=== PATIENT | female | born 1965 | race Caucasian/White ===

== ENCOUNTER 2019-12-09 09:41 | Emergency (ER) | payer OTHER, SELFPAY ==
--- NOTE | ~2019-12-09 | CT_ITS ---
EXAMINATION: CT brain wo con DATE: 12/09/2019 11:02 INDICATION: Head injury. TECHNIQUE: Computed tomography (CT) of the head was performed without intravenous contrast. The mA wa s adjusted according to patient size. Iterative reconstruction technique was employed. The dose-lengt h product was 605.33 mGy-cm. COMPARISON: None FINDINGS: There are scattered areas of low attenuation in the cerebral white matter. There is no intr acranial hemorrhage, acute infarction, or abnormal intracranial mass lesion. The ventricles are junior l in size. The orbits are normal. The paranasal sinuses are clear. The mastoid air cells are normal. There is left periorbital soft tissue swelling. IMPRESSION: 1. Mild nonspecific cerebral white matter disease, which likely represents chronic small vessel ische tay disease. Reviewed, dictated and finalized at location A. ERN FITTER IMPRESSION: 1. Mild nonspecific cerebral white matter disease, which likely represents rod drawer lauren small vessel ischemic disease.
--- NOTE | ~2019-12-09 | CT_ITS ---
EXAMINATION: CT facial bones wo con DATE: 12/09/2019 11:02 INDICATION: Left face injury. TECHNIQUE: Computed tomography (CT) of the facial bones and maxillofacial region was performed withou t intravenous contrast. Automated exposure control and iterative reconstruction technique were employ ed. The dose-length product was 474.14 mGy-cm. COMPARISON: None. FINDINGS: Left periorbital soft tissue swelling is noted. The orbits are normal. Bone alignment is no rmal. No fracture. The paranasal sinuses are clear. There are periapical lucencies around tooth #21. There is a carious lesion of tooth #12. IMPRESSION: 1. No fracture. 2. Dental disease. Reviewed, dictated and finalized at location A. NCE PROFESSOR
[2019-12-09 09:50] VITALS: BP 168/100; PULSE 84; RESP 18; TEMP 36.9; O2SAT 100
--- NOTE | 2019-12-09 10:08 | ED.FALL ---
HPI - Fall General Chief Complaint: Fall Stated Complaint: Fall Monday, Eye swelling Time Seen by Provider: 12/09/19 10:02 Source: patient and RN notes reviewed Mode of arrival: ambulatory Limitations: no limitations History of Present Illness HPI Narrative: 3A 54 y/o female presents to the ED with worsening facial swelling after having a ground level fall 3 days ago. She states that she was getting ready to walk up a driveway when she tripped over the curb and fell face forward. She reports lt periorbital pain, back pain, MARY knee pain, and chest wall pain. She notes that the swelling has moved from her lt periorbital area to her rt periorbital area. She also notes that she has taken Ibuprofen and Vicodon but denies it alleviating her symptoms. She also denies any LOC, weakness, dizziness, visual changes, nasal discharge, ear discharge, or SOB. MD complaint: fall Onset (ago): day(s) (3) Fall from: standing Place fall occurred: street Loss of consciousness: none Symptoms prior to fall: none Context: tripped/slipped Location of injury: face (MARY periorbital swelling and lt periorbital pain) Associated symptoms (after fall): other (MARY knee pain, back pain, and chest wall pain) Related Data Home Medications Medication Instructions Recorded Confirmed levetiracetam 12/09/19 lisinopril 12/09/19 Allergies Allergy/AdvReac Type Severity Reaction Status Date / Time metoclopramide [From Reglan] Allergy Unknown Verified 12/09/19 09:53 morphine Allergy Unknown Verified 12/09/19 09:53 povidone-iodine Allergy Unknown Verified 12/09/19 09:53 [From Betadine] prochlorperazine Allergy Unknown Verified 12/09/19 09:53 [From Compazine] promethazine [From Phenergan] Allergy Unknown Verified 12/09/19 09:53 soap [From Betadine] Allergy Unknown Verified 12/09/19 09:53 Review of Systems Review of Systems: All systems reviewed & are unremarkable except as noted in HPI and below Eyes: Eyes: Denies change in vision and Reports other (MARY periorbital swelling and lt periorbital pain) ENT: Denies ear discharge and Denies nasal discharge Cardiovascular: Cardiovascular: Reports other (chest wall pain) Respiratory: Respiratory: Denies dyspnea Musculoskeletal: Musculoskeletal: Reports back pain and Reports other (MARY knee pain) Neurologic: Denies dizziness, Denies weakness and Denies other (LOC) PMFSH Past Medical History Medical History H/O: HTN (hypertension) Hx of seizure disorder Surgical History Surgical History Surgical history unknown Family History Family History Mother Family history of malignant neoplasm of breast in first degree relative Other Carcinoma of colon Social History Social History Smoking status: Never smoker Alcohol intake: current Gender identity (if verbalized by the patient): Female Exam Const: General: healthy appearing and no acute distress Nutritional Appearance: well nourished HENMT: Head: abrasion (forehead) and other (swelling to MARY periorbital area appears to be more seruous fluid) Mouth: Yes lip normal and Yes moist mucous membranes Eyes: Conjunctivae: conjunctivae normal Pupils: Equal, round and reactive pupils present Resp: Effort & Inspection: normal respiratory effort Auscultation: clear to auscultation bilaterally Cardio: Rate: regular rate Rhythm: regular rhythm Heart sounds: no murmurs GI: Inspection: non-distended GI Palp: No abdominal tenderness Auscultation: normal bowel sounds Back/Spine/Pelvis: Other: Full ROM. Skin: General skin exam: normal color, dry skin and other (warm) Neuro: General: patient oriented x3 (alert) Speech: normal speech Extrem: General: full ROM Psych: Mental Status: mental status grossly normal Affect: normal affect Course Vital Signs
[2019-12-09 11:04] VITALS: BP 143/88; PULSE 83; RESP 18; TEMP 36.5; O2SAT 100
== END 2019-12-09 13:06 | disposition home or self-care (01) ==
PROVIDERS: Emergency Provider Emergency Medicine
DX: S00.83XA Contusion of other part of head, initial encounter (principal); K04.7 Periapical abscess without sinus; I10 Essential (primary) hypertension; W10.1XXA Fall (on)(from) sidewalk curb, initial encounter; R90.82 White matter disease, unspecified
CPT/HCPCS: 41800; 70450; 70486; 99284

== ENCOUNTER 2024-08-26 15:09 | Emergency (ER) | payer OTHER, SELFPAY ==
--- NOTE | ~2024-08-26 | US_ITS ---
EXAMINATION: US breast RT limited DATE: 08/26/2024 17:38 JUNIOR ASSISTANT MANAGER INDICATION: Palpable abnormality TECHNIQUE: Survey imaging of the right breast was performed assessing grayscale appearance and color Doppler flow. FINDINGS: At the 10:00 position of the right breast within the area of palpable concern, no discrete fluid carlos ection is identified to suggest an abscess. IMPRESSION: Within the area of palpable concern no discrete fluid collection is appreciated. Follow-up with dedicated mammogram and ultrasound of the area of clinical concern is recommended for complete evaluation. BI-RADS Category 0: Incomplete, additional imaging is needed. Reviewed, dictated and finalized at location A. OR ASSISTANT MANAGER IMPRESSION: Within the area of palpable concern no discrete fluid collection is appreciated . Follow-up with dedicated mammogram and ultrasound of the area of clinical isabel rn is recommended for complete evaluation. BI-RADS Category 0: Incomplete, additional imaging is needed.
[2024-08-26 15:11] VITALS: BP 130/82; PULSE 80; RESP 16; TEMP 36.4; O2SAT 98
--- NOTE | 2024-08-26 16:41 | ED_ITS ---
HPI - General Adult General Chief complaint: Recheck/Abnormal Lab/Rx <RONALD Darden Last Filed: 08/26/24 16:47> Stated complaint: right breast lump <RONALD Darden Last Filed: 08/26/24 16:47> Time Seen by Provider: 08/26/24 16:42 <RONALD Darden Last Filed: 08/26/24 16:47> Focused HPI: Patient is a 59-year-old female who presents the ED with report of right breast lump. Patient reports she noticed a lump while taking a shower this morning in the 10:00 oclock region of her right breast from her nipple. She became very concerned. Does not currently have a PCP. reports breast cancer runs in her family in her mother and her maternal aunt. Patient last had a mammogram 1.5 years ago which he states was normal at that time. Denies fevers, skin changes, nipple discharge. GENERAL: Well-appearing, well-nourished, and in no acute distress. HEAD: Normocephalic, atraumatic. CHEST: Clear to auscultation. ?No respiratory distress. HEART: Regular rate and rhythm.? BREAST: Moderate sized palpable area of induration/mass to R breast in 10[place]ock region from nipple. No nipple inversion or drainage. NEURO: ?Alert and oriented x3. Patient screened in triage and initial orders placed.? ?Additional care and disposition to be based upon?diagnostic testing and treatment. <Kourtney Zaragoza PA-C - Last Filed: 08/26/24 16:47> Source: patient <RONALD Darden Last Filed: 08/26/24 16:47> Mode of arrival: ambulatory <RONALD Darden Last Filed: 08/26/24 16:47> Limitations: no limitations <RONALD Darden Last Filed: 08/26/24 16:47> History of Present Illness HPI narrative: Agree with the above HPI. <RONALD Russell Last Filed: 08/26/24 18:58> Related Data Home medications: Home Medications Medication Instructions Recorded Confirmed levetiracetam 12/09/19 lisinopril 20 mg tablet 12/09/19 <Kourtney Zaragoza PA-C - Last Filed: 08/26/24 16:47> Allergies/adverse reactions: Allergies Allergy/AdvReac Type Severity Reaction Status Date / Time metoclopramide [From Reglan] Allergy Unknown Verified 08/26/24 15:17 morphine Allergy Unknown Verified 08/26/24 15:17 povidone-iodine Allergy Unknown Verified 08/26/24 15:17 [From Betadine] prochlorperazine Allergy Unknown Verified 08/26/24 15:17 [From Compazine] promethazine [From Phenergan] Allergy Unknown Verified 08/26/24 15:17 soap [From Betadine] Allergy Unknown Verified 08/26/24 15:17 <Kourtney Zaragoza PA-C - Last Filed: 08/26/24 16:47> Review of Systems Review of Systems: All systems reviewed & are unremarkable except as noted in HPI and below <Shelly Freire PA-C - Last Filed: 08/26/24 18:58> PMFSH Past Medical History Medical History: Medical History (Updated 08/26/24 @ 18:55 by Shelly Freire PA-C) H/O: HTN (hypertension) Hx of seizure disorder <Kourtney Zaragoza PA-C - Last Filed: 08/26/24 16:47> Surgical History Surgical History: Surgical History Surgical history unknown <Kourtney Zaragoza PA-C - Last Filed: 08/26/24 16:47> Family History Family History: Family History Mother Family history of malignant neoplasm of breast in first degree relative Other Carcinoma of colon <Kourtney Zaragoza PA-C - Last Filed: 08/26/24 16:47> Social History Social History: Social History Smoking status: Never smoker Alcohol intake: current Gender identity (if verbalized by the patient): Female <RONALD Darden Last Filed: 08/26/24 16:47> Exam Narrative: GENERAL: Well-appearing, well-nourished, and in no acute distress. HEAD: Normocephalic, atraumatic. EYES: EOMI. ENT: Nares clear, no rhinorrhea or epistaxis. Mucous membranes moist. NECK: Supple. CHEST: Clear to auscultation. No respiratory distress. Moderate size area of firm mass to the right upper outer quadrant of the breast. No overlying skin changes. No nipple discharge. No fluctuance HEART: Regular rate and rhythm. No murmur heard. Normal peripheral pulses. EXTREMITIES: Normal range of motion. No edema. SKIN: Warm, dry, no rash. NEURO: No focal deficits. Alert and oriented x3 <RONALD Russell Last Filed: 08/26/24 18:58> Course Vital Signs Vital signs: Vital Signs Temperature 97.6 F 08/26/24 15:11 Pulse Rate 80 08/26/24 15:11 Respiratory Rate 16 08/26/24 15:11 Blood Pressure 130/82 08/26/24 15:11 Pulse Oximetry 98 08/26/24 15:11 Oxygen Delivery Room Air 08/26/24 15:11 Temperature 97.6 F 08/26/24 15:11 Pulse Rate 80 08/26/24 15:11 Respiratory Rate 16 08/26/24 15:11 Blood Pressure 130/82 08/26/24 15:11 Pulse Oximetry 98 08/26/24 15:11 Oxygen Delivery Room Air 08/26/24 15:11 <RONALD Darden Last Filed: 08/26/24 16:47> Vital Signs Temperature 97.6 F 08/26/24 15:11 Pulse Rate 80 08/26/24 15:11 Respiratory Rate 16 08/26/24 15:11 Blood Pressure 130/82 08/26/24 15:11 Pulse Oximetry 98 08/26/24 15:11 Oxygen Delivery Room Air 08/26/24 15:11 Temperature 97.6 F 08/26/24 15:11 Pulse Rate 80 08/26/24 15:11 Respiratory Rate 16 08/26/24 15:11 Blood Pressure 130/82 08/26/24 15:11 Pulse Oximetry 98 08/26/24 15:11 Oxygen Delivery Room Air 08/26/24 15:11 <Shelly Freire PA-C - Last Filed: 08/26/24 18:58> Medical Decision Making MDM Narrative Medical decision making narrative: MSE by MAXI in triage <Kourtney Zaragoza PA-C - Last Filed: 08/26/24 16:47> MSE by MAXI in triage 59-year-old female presents to the emergency department right breast lump she noticed this morning. She is concerned because she notes a positive family history breast cancer. Vitals are stable. She is nontoxic appearing. Exam significant for a firm mass to the right upper outer quadrant. No overlying skin changes. No nipple discharge. Ultrasound is unremarkable. Strongly advised patient to follow-up with a PCP and OBGYN to obtain an outpatient mammogram. Strict ED return precautions discussed. She is agreeable to plan verbalized understanding. Discharged in stable condition <Shelly Freire PA-C - Last Filed: 08/26/24 18:58> Vital Signs Vital Signs: Vital Signs Temperature 97.6 F 08/26/24 15:11 Pulse Rate 80 08/26/24 15:11 Respiratory Rate 16 08/26/24 15:11 Blood Pressure 130/82 08/26/24 15:11 Pulse Oximetry 98 08/26/24 15:11 Oxygen Delivery Room Air 08/26/24 15:11 Temperature 97.6 F 08/26/24 15:11 Pulse Rate 80 08/26/24 15:11 Respiratory Rate 16 08/26/24 15:11 Blood Pressure 130/82 08/26/24 15:11 Pulse Oximetry 98 08/26/24 15:11 Oxygen Delivery Room Air 08/26/24 15:11 <Kourtney Zaragoza PA-C - Last Filed: 08/26/24 16:47> Vital Signs Temperature 97.6 F 08/26/24 15:11 Pulse Rate 80 08/26/24 15:11 Respiratory Rate 16 08/26/24 15:11 Blood Pressure 130/82 08/26/24 15:11 Pulse Oximetry 98 08/26/24 15:11 Oxygen Delivery Room Air 08/26/24 15:11 Temperature 97.6 F 08/26/24 15:11 Pulse Rate 80 08/26/24 15:11 Respiratory Rate 16 08/26/24 15:11 Blood Pressure 130/82 08/26/24 15:11 Pulse Oximetry 98 08/26/24 15:11 Oxygen Delivery Room Air 08/26/24 15:11 <Shelly Freire PA-C - Last Filed: 08/26/24 18:58> Discharge Plan Discharge Clinical Impression: Breast lump Qualifiers: Laterality: right Breast mass location: upper outer quadrant Qualified Code(s): N63.11 - Unspecified lump in the right breast, upper outer quadrant <RONALD Darden Last Filed: 08/26/24 16:47> Patient Disposition: Home, Self-Care <RONALD Darden Last Filed: 08/26/24 16:47> Condition: Stable <RONALD Darden Last Filed: 08/26/24 16:47> Instructions: Antibiotic Form, Breast Mass (ED) <RONALD Darden Last Filed: 08/26/24 16:47> Additional Instructions: You were evaluated in the emergency department for a breast lump. The ultrasound shows no findings. Please make sure to follow-up closely with the primary care provider and OBGYN to schedule outpatient mammogram. Return to the emergency department if you develop worsening symptoms. <RONALD Darden Last Filed: 08/26/24 16:47> Prescriptions: No Action lisinopril 20 mg tablet levetiracetam <RONALD Darden Last Filed: 08/26/24 16:47> Follow-up/Referrals: Toni Manzanares MD [Physician] - 1 Day Tye Kirk MD [Physician] - 1 Day PHYSICIAN,IRRIGATION DISTRICT MANAGER [Primary Care Provider] - <RONALD Darden Last Filed: 08/26/24 16:47>
[2024-08-26 19:14] VITALS: BP 129/92; PULSE 78; RESP 20; O2SAT 98
== END 2024-08-26 19:16 | disposition home or self-care (01) ==
PROVIDERS: Emergency Provider Physician Assistant
DX: N63.11 Unspecified lump in the right breast, upper outer quadrant (principal); I10 Essential (primary) hypertension; G40.909 Epilepsy, unspecified, not intractable, without status epilepticus; Z79.899 Other long term (current) drug therapy
CPT/HCPCS: 76642; 99284